=== PATIENT | female | born 2000 | race Caucasian/White ===

== ENCOUNTER 2021-04-26 06:37 | Emergency (ER) | payer MEDICAID | END 2021-04-26 07:08 | disposition left against medical advice (07) | LOC: ER 06:37 | DX: Z53.21 Procedure and treatment not carried out due to patient leaving prior to being seen by health care provider (principal) ==

== ENCOUNTER 2021-05-26 08:45 | Emergency (ER) | payer MEDICAID ==
[~2021-05-26] VITALS: Ht 162.6 cm; Wt 84.0 kg
[2021-05-26 08:56] VITALS: BP 148/104
[2021-05-26] MEDS ORDERED: GABA-529 MT (10:34)
== END 2021-05-26 10:47 | disposition home or self-care (01) ==
LOC: ER 08:45
DX: M79.2 Neuralgia and neuritis, unspecified (principal); L84 Corns and callosities; D64.9 Anemia, unspecified; F41.9 Anxiety disorder, unspecified; F32.9 Major depressive disorder, single episode, unspecified; I10 Essential (primary) hypertension; Z88.0 Allergy status to penicillin
CPT/HCPCS: 99281

== ENCOUNTER 2021-12-06 02:24 | Emergency (ER) | payer MEDICAID ==
[~2021-12-06] VITALS: Ht 170.2 cm; Wt 98.0 kg
[~2021-12-06 02:24] MED LIST: GABA-529 MT
[2021-12-06 05:02] LABS: CLARITY URINE CLEAR (CLEAR); COLOR URINE STRAW (YELLOW)
[2021-12-06 05:03] LABS: KETONES URINE NEGATIVE (NEGATIVE); LEUKOCYTE ESTERASE URINE NEGATIVE (NEGATIVE); NITRITE URINE NEGATIVE (NEGATIVE); OCCULT BLOOD URINE NEGATIVE (NEGATIVE); PH URINE 6.5 (4.5-8.0); PROTEIN URINE NEGATIVE (NEGATIVE); SPECIFIC GRAVITY URINE 1.005 (1.005-1.030); UROBILINOGEN URINE 0.2 E.U./dL (0.2-1.0)
[2021-12-06] MEDS ORDERED: IBUPROFEN 600MG TABLET PO NR (05:15)
[2021-12-06 06:15] VITALS: BP 132/88
[2021-12-06] MEDS ORDERED: NAPR-681 PO (06:15)
[2021-12-06] MEDS ORDERED: D-ME473S50 PO (06:15)
== END 2021-12-06 06:20 | disposition home or self-care (01) ==
LOC: ER 02:24
DX: J06.9 Acute upper respiratory infection, unspecified (principal); R07.0 Pain in throat; Z20.822 Contact with and (suspected) exposure to COVID-19; Z88.0 Allergy status to penicillin
CPT/HCPCS: 71045; 81003; 81025; 87070; 87426; 87430; 99284; C9803

== ENCOUNTER 2022-05-11 15:36 | Emergency (ER) | payer MEDICAID ==
[~2022-05-11] VITALS: Ht 172.7 cm; Wt 85.0 kg
[~2022-05-11 15:36] MED LIST changes: +D-ME473S50 PO; +NAPR-681 PO
[2022-05-11 16:39] VITALS: BP 144/78
[2022-05-11] MEDS ORDERED: IBUPROFEN 600MG TABLET PO ONE (19:00)
[2022-05-11] MEDS ORDERED: HYDROCODONE/ACETAMINOPHEN 5/325MG TABLET PO ONE (19:30)
[2022-05-11] MEDS ORDERED: IBUP-2029 MT (19:53)
[2022-05-11] MEDS ORDERED: HYDR-4001 MT ×2 (19:53)
[2022-05-14] MEDS ORDERED: OXYC-100 MT (14:13)
== END 2022-05-11 20:22 | disposition home or self-care (01) ==
LOC: ER 15:36
DX: S92.901A Unspecified fracture of right foot, initial encounter for closed fracture (principal); W18.39XA Other fall on same level, initial encounter; Y93.89 Activity, other specified; Y92.89 Other specified places as the place of occurrence of the external cause; Y99.8 Other external cause status; D64.9 Anemia, unspecified; I10 Essential (primary) hypertension
CPT/HCPCS: 73630; 99283; Z7610

== ENCOUNTER 2022-06-09 11:04 | Emergency (ER) | payer MEDICAID ==
[~2022-06-09] VITALS: Ht 162.6 cm; Wt 75.0 kg
[~2022-06-09 11:04] MED LIST changes: +IBUP-2029 MT; +OXYC-100 MT
[2022-06-09 11:10] VITALS: BP 165/108
[2022-06-09] MEDS ORDERED: CLIN-194 MT (12:55)
== END 2022-06-09 13:10 | disposition home or self-care (01) ==
LOC: ER 11:04
DX: L03.116 Cellulitis of left lower limb (principal); I10 Essential (primary) hypertension; Z88.0 Allergy status to penicillin
CPT/HCPCS: 99283

== ENCOUNTER 2023-05-21 06:20 | Emergency (ER) | payer MEDICAID ==
[~2023-05-21] VITALS: Ht 172.7 cm; Wt 82.0 kg
[~2023-05-21 06:20] MED LIST changes: +CLIN-194 MT
[2023-05-21 06:36] VITALS: TEMP 98.3; O2SAT 99
[2023-05-21 07:03] LABS: CLARITY URINE CLOUDY (CLEAR); COLOR URINE DARK YELLOW (YELLOW); GLUCOSE URINE NEGATIVE (NEGATIVE); KETONES URINE TRACE (NEGATIVE); LEUKOCYTE ESTERASE URINE NEGATIVE (NEGATIVE); NITRITE URINE NEGATIVE (NEGATIVE); OCCULT BLOOD URINE NEGATIVE (NEGATIVE); PH URINE 5.5 (4.5-8.0); PROTEIN URINE 2+ (NEGATIVE)
[2023-05-21 07:44] LABS: SQUAMOUS EPITHELIAL CELL URINE 1+ /lpf (RARE/1+)
[2023-05-21 07:46] LABS: BACTERIA URINE TRACE; RBC URINE 0-2 /hpf (0-2); WBC URINE 0-2 /hpf (0-2)
[2023-05-21 09:30] VITALS: BP 149/95; PULSE 108; RESP 17
[2023-05-21] MEDS: KETOROLAC 60MG/2ML VIAL IM ONE (09:30)
[2023-05-21 09:31] LABS: HEMATOCRIT. 46.1 % (36.0-48.0); HEMOGLOBIN. 15.4 g/dL (12.0-16.0); LYMPHOCYTES % 25.5 % (20.0-50.0); MEAN CORPUSCULAR HEMOGLOBIN 27.6 pg (28.0-32.0); MEAN CORPUSCULAR HGB CONC 33.3 g/dL (31.0-37.0); MEAN CORPUSCULAR VOLUME 82.8 fL (81.0-99.0); MEAN PLATELET VOLUME 9.5 fl (7.4-10.4); MONOCYTES % 9.4 % (2.0-8.0); NEUTROPHILS % 63.1 % (40.0-76.0); PLATELET 225 x1000/uL (130-400); RED BLOOD CELL COUNT 5.57 mill/uL (4.2-5.4); WHITE BLOOD COUNT 5.7 x1000/uL (4.5-11.0)
[2023-05-21 09:47] LABS: ALANINE AMINOTRANSFERASE 17 IU/L (10-49); ALBUMIN 5.2 g/dL (3.2-4.8); ASPARTATE AMINOTRANSFERASE 25 IU/L (<34); BILIRUBIN TOTAL 0.9 mg/dL (0.1-1.0); CALCIUM 9.3 mg/dL (8.7-10.4); CARBON DIOXIDE 23 mEq/L (21-32); CHLORIDE 106 mEq/L (98-107); CREATININE 0.9 mg/dL (0.6-1.0); GLUCOSE 87 mg/dL (70-105); POTASSIUM 3.5 mEq/L (3.5-5.1); PROTEIN TOTAL 9.2 g/dL (6.0-8.3); SODIUM 136 mEq/L (136-145); UREA NITROGEN BLOOD 9 mg/dL (9-23)
[2023-05-21 09:50] LABS: HCG SCREEN NEGATIVE
[2023-05-21 09:55] LABS: *AMPHETAMINES SCREEN URINE PRESUMPTIVE POSITIVE (NEGATIVE); *BARBITURATES SCREEN URINE NEGATIVE (NEGATIVE); *BENZODIAZEPINES SCREEN URINE NEGATIVE (NEGATIVE); *COCAINE SCREEN URINE NEGATIVE (NEGATIVE); CANNABINOID URINE SCREEN PRESUMPTIVE POSITIVE (NEGATIVE); ECSTASY MDMA SCREEN URINE NEGATIVE (NEGATIVE); METHADONE URINE SCREEN Neg (NEGATIVE); OPIATES URINE SCREEN NEGATIVE (NEGATIVE); PHENCYCLIDINE URINE SCREEN NEGATIVE (NEGATIVE)
[2023-05-21] MEDS ORDERED: LOPE2TAB24 MT (10:49)
== END 2023-05-21 11:39 | disposition home or self-care (01) ==
LOC: ER 06:34
DX: G89.29 Other chronic pain (principal); M54.50 Low back pain, unspecified; R19.7 Diarrhea, unspecified; F15.10 Other stimulant abuse, uncomplicated; I10 Essential (primary) hypertension; D64.9 Anemia, unspecified; Z88.0 Allergy status to penicillin
CPT/HCPCS: 99283; 80053; 80305; 81025; 84703; 83690; 85025; 36415; 96372; 81003; J1885